=== PATIENT | male | born 1995 ===

== ENCOUNTER 2018-12-20 11:32 | Inpatient (IN) | payer OTHER ==
[~2018-12-20] VITALS: Ht 175.3 cm; Wt 76.2 kg
[2018-12-20 12:44] VITALS: BP 102/63; PULSE 91; TEMP 98.8
--- NOTE | 2018-12-20 13:00 | NUR ---
Arrived to the room at this time. Resting quietly at this time. No pain reported. The patient was oriented to the room. Initial assessment completed per this nurse.
[2018-12-20 14:51] LABS: HEMOGLOBIN 8.5 g/dl (13.5-18.0)
[2018-12-20 15:36] VITALS: BP 110/51; PULSE 94; TEMP 99.4
[2018-12-20] MEDS ORDERED: WELLBUTRIN 75MG75 MG PO (19:12)
[2018-12-20] MEDS ORDERED: ATARAX 10MG10 MG/TAB PO (19:12)
--- NOTE | 2018-12-20 19:14 | NUR ---
The patient voiced he smokes up to a pack of cigerettes per day if being "social" and drinking. Other days the patient will have "one or two".
[2018-12-20 20:13] VITALS: BP 101/56; PULSE 93; TEMP 99.8
--- NOTE | 2018-12-20 20:42 | NUR ---
PT IN BED, AWAKENS EASILY. PT DENIES PAIN OR DISCOMFORT, WITH NO NEEDS AT THIS TIME, CALL LIGHT WITHIN REACH. PT AWARE THAT HE IS NPO.
[2018-12-20 23:03] LABS: HEMATOCRIT 23.6 % (42.0-52.0); HEMOGLOBIN 7.9 g/dl (13.5-18.0)
[2018-12-21] VITALS (9 sets, daily range): BP systolic 99–113; BP diastolic 42–62; PULSE 88–98; TEMP 99.4–100.8
--- NOTE | 2018-12-21 03:12 | NUR ---
UNEVENTFUL NIGHT, PT SLEEPING/RESTING WITH NO S/S OF PAIN OR DISCOMFORT NOTED, GIRLFRIEND AT BEDSIDE IN RECLINER. CALL LIGHT WITHIN REACH.
--- NOTE | 2018-12-21 05:37 | NUR ---
UNEVENTFUL NIGHT, PT SLEEPING/RESTING WITH GIRLFRIEND BY SIDE. PT SOFTLY SNORES, WITH RESP EVEN AND UNLABORED. CALL LIGHT WITHIN REACH.
--- NOTE | 2018-12-21 06:59 | NUR ---
DR. HICKS CALLED AND ADVISED WILL DO AN UPPER ENDOSCOPY AROUND 1430 AND 1500 THIS AFTERNOON. ALSO GAVE ORDERS TO PUT IN ROUTINE ENDOSCOPY ORDERS. ANESTHESIA WAS PAGED AND THEY CALLED BACK RIGHT AWAY AND GO INFO.
[2018-12-21 07:32] LABS: BASO % 0.5 % (0.0-2.0); EOS # 0.5 (0.0-0.7); EOS % 7.3 % (0-4.0); GRAN # 3.8 (1.4-6.5); LYMPH # 1.3 (1.2-3.4); LYMPH % 20.6 % (20.0-51.0); MEAN CELL VOLUME 93 fl (80.0-100.0); MEAN CORPUSCULAR HGB CONC 34 g/dl (33.0-37.0); MEAN PLATELET VOLUME 10.8 fl (7.4-10.4); MONO # 0.8 (0.1-0.6); MONO % 12.3 % (1.7-9.3); PLATELET COUNT 177 K/mm3 (130-400); RED BLOOD COUNT 2.39 M/mm3 (4.20-5.60); REDCELL DISTRIBUTION WIDTH-CV 12.8 % (11.5-14.5)
[2018-12-21 07:36] LABS: HEMATOCRIT 22.2 % (42.0-52.0); HEMOGLOBIN 7.5 g/dl (13.5-18.0); MEAN CORPUSCULAR HEMOGLOBIN 31 pg (27.0-31.0)
[2018-12-21 07:39] LABS: CREATININE, serum 0.93 (0.66-1.25); POTASSIUM 4.1 mmol/L (3.4-5.0)
--- NOTE | 2018-12-21 09:13 | NUR ---
Assessment completed, alert/oriented, vital signs stable/ does have low grade fever this morning and i will notify the hospitalist, he reports a headache that is ongoing but thinks this is because he has not eaten in a couple days now, denies any abdominal discomfort, denies any further bloody emesis or bloody stools, denies any N/V at this time, hemaglobin is 7.5 this moring and I have notified the hospitalist, GI was consulted and has given order for EGD today around 1430, patient is NPO/ IVF infusing and will have him sign informed consent, heart RRR/distal pulses are palpable, lungs CTA/ no resp.difficulty noted, mother and girlfriend are at bedside, he denies othr needs at this time
--- NOTE | 2018-12-21 11:37 | NUR ---
SW attended clinical rounds to discuss discharge planning. 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 Patient receives primary care and obtains medications on [facility] [address]. Patient is independent with his ADLs. SW does not anticipate any discharge needs.
--- NOTE | 2018-12-21 15:40 | NUR ---
Patient is going down for EGD at this time
--- NOTE | 2018-12-21 19:18 | NUR ---
Pt sitting with HOB eating a full liquid tray. Family at bedside. No distress noted. Pt c/o pain/pressure in his R ear. He states that the pain is periodically sharp. He also reports sinus congestion. Lungs clear. Abdomen soft, nontender. BS hyperactive x4. Pt is tolerating PO fluids and full liquid tray. Pt denies nausea or vomiting. Pt also denies BM today. L AC IV site with IVF infusing. SCDs put on patient for VTE prophylaxis. No further needs noted. Will continue to monitor.
--- NOTE | 2018-12-21 19:38 | NUR ---
Ben arrived back to the Medical floor from [facility] at this time, alert/oriented, vital signs stable, and hosptialist said can start on clear liquids and adavance Diet at tolerated, he does continue to have low grade temp/ Hospitalist notified, family present at bedside, tolerating CL so far
--- NOTE | 2018-12-21 20:34 | NUR ---
Tylenol given for pts R ear pain. Pt is tolerating PO hyration. IV converted to INT. IV covered so patient can shower. No further needs noted.
[2018-12-22] VITALS (9 sets, daily range): BP systolic 106–129; BP diastolic 53–61; PULSE 80–100; TEMP 98.3–102.9
--- NOTE | 2018-12-22 05:20 | NUR ---
Pts temperature has continued to trend up this shift. Temp was 102.9 orally when checked. ORGAN ASSEMBLER waited a few minutes and rechecked temp at 102.2. Pt reports the same symptoms as the beginning of the shift. R ear pain and pressure/fullness in bilateral ears. Pt also reports congestion and sinus pressure. Tylenol given. Paz MARIN called. She wants to come assess the patient before giving orders.
--- NOTE | 2018-12-22 06:19 | NUR ---
Paz CARDIOPULMONARY TECHNICIAN at bedside.
--- NOTE | 2018-12-22 06:25 | NUR ---
Paz assessed patient but was unable to visualize the eardrum due to ear wax accumulation. Blood cultures x2, CXR and UA orders. Temp recheck was 101.4 after tylenol. Will continue to monitor.
[2018-12-22 06:43] LABS: BASO % 0.1 % (0.0-2.0); EOS # 0.4 (0.0-0.7); EOS % 6.2 % (0-4.0); GRAN # 4.5 (1.4-6.5); GRAN % 64.2 % (42.2-75.2); LYMPH # 1.2 (1.2-3.4); LYMPH % 16.6 % (20.0-51.0); MEAN CELL VOLUME 92 fl (80.0-100.0); MEAN CORPUSCULAR HGB CONC 34 g/dl (33.0-37.0); MEAN PLATELET VOLUME 10.6 fl (7.4-10.4); MONO # 0.9 (0.1-0.6); MONO % 12.2 % (1.7-9.3); PLATELET COUNT 183 K/mm3 (130-400); RED BLOOD COUNT 2.22 M/mm3 (4.20-5.60); REDCELL DISTRIBUTION WIDTH-CV 12.4 % (11.5-14.5)
[2018-12-22 06:49] LABS: HEMATOCRIT 20.4 % (42.0-52.0); MEAN CORPUSCULAR HEMOGLOBIN 32 pg (27.0-31.0)
[2018-12-22 06:54] LABS: CALCIUM 8.1 mg/dL (8.4-10.2); CREATININE, serum 0.96 (0.66-1.25); POTASSIUM 3.7 mmol/L (3.4-5.0)
--- NOTE | 2018-12-22 08:00 | NUR ---
Initial assessment completed. The patient reported sinus pressure and sore throat. Temp max 102.9 overnight. The patient was given tylenol PRN. Currently, no chills or diaphoresis at this time. The patient's UA was obtained. Plan for chest xray and blood cultures.
--- NOTE | 2018-12-22 09:41 | NUR ---
Initial visit; Patient thanked [employer] for looking in on him and offering God's blessings and thanking him for his Service for [employer] as a Person[employer].
--- NOTE | 2018-12-22 12:00 | NUR ---
Throat swab obtained at this time. No pain or needs reported. The call light is in place.
[2018-12-22 13:00] LABS: PH 7 (5-8); SQUAMOUS EPITHELIAL None Seen /hpf; URINE APPEARANCE Clear; URINE BACTERIA None Seen /hpf; URINE BILIRUBIN Negative (NEGATIVE); URINE BLOOD Negative (NEGATIVE); URINE COLOR Yellow; URINE GLUCOSE Negative (NEGATIVE); URINE KETONE Negative (NEGATIVE); URINE LEUKOCYTE ESTERASE Negative (NEGATIVE); URINE NITRATE Negative (NEGATIVE); URINE PROTEIN(semi-quant) Negative (NEGATIVE); URINE RBC None Seen /hpf; URINE UROBILINOGEN Negative (NEGATIVE)
[2018-12-22 13:20] LABS: COLLECTION METHOD CLEAN CATCH
--- NOTE | 2018-12-22 13:53 | NUR ---
Report given to MAX Robles to resume care.
[2018-12-22 15:34] LABS: HEMATOCRIT 20.9 % (42.0-52.0); HEMOGLOBIN 7.1 g/dl (13.5-18.0)
--- NOTE | 2018-12-22 17:43 | NUR ---
Patient had an uneventful day. VS stable. IV CDI. Patient reports discomfort in throat, has not requested any medication. Nurse encouraged ice chips. Patient had elevated temperature. Dr notified, medication given. Temperature has gone down. Will continue to monitor. Patient resting in bed with family at bedside. No further needs identified at this time. Call light within reach.
[2018-12-23 00:05] VITALS: BP 115/54; PULSE 91; TEMP 98.8
[2018-12-23 04:50] VITALS: BP 102/45; PULSE 89; TEMP 98.8
[2018-12-23 06:30] LABS: BASO % 0.3 % (0.0-2.0); EOS # 0.7 (0.0-0.7); GRAN % 50.4 % (42.2-75.2); LYMPH # 1.5 (1.2-3.4); LYMPH % 25.2 % (20.0-51.0); MEAN CELL VOLUME 93 fl (80.0-100.0); MEAN CORPUSCULAR HGB CONC 34 g/dl (33.0-37.0); MEAN PLATELET VOLUME 11.1 fl (7.4-10.4); MONO # 0.7 (0.1-0.6); MONO % 12.3 % (1.7-9.3); PLATELET COUNT 218 K/mm3 (130-400); REDCELL DISTRIBUTION WIDTH-CV 12.8 % (11.5-14.5)
[2018-12-23 06:35] LABS: CALCIUM 8.3 mg/dL (8.4-10.2); CREATININE, serum 0.87 (0.66-1.25); POTASSIUM 3.9 mmol/L (3.4-5.0)
[2018-12-23 06:48] LABS: HEMATOCRIT 21.4 % (42.0-52.0); HEMOGLOBIN 7.2 g/dl (13.5-18.0); MEAN CORPUSCULAR HEMOGLOBIN 31 pg (27.0-31.0)
[2018-12-23 07:34] VITALS: BP 110/49; PULSE 96; TEMP 99.8
[2018-12-23] MEDS ORDERED: AMOXICILLIN 8751 TAB PO (09:16)
[2018-12-23] MEDS ORDERED: PROTONIX 40MG T40 MG PO (09:17)
[2018-12-23] MEDS ORDERED: FERROUS SU325 MG/TAB PO (09:17)
--- NOTE | 2018-12-23 10:14 | NUR ---
PT DISCHARGE EDUCATION PROVIDED, IV REMOVED. SCRIPTS GIVEN TO PT. NO QUESTIONS OR CONSERNS VOICED. FAMILY AT BEDSIDE. THIS NURSE ASKED IF THEY NEEDED ASSISTANCE OUT OF FACILITY, DENIED NEED.
--- NOTE | 2018-12-23 10:35 | NUR ---
PT EXITED FACILITY WITH FAMILY ESCORT.
== END 2018-12-23 10:35 | disposition home or self-care (01) | DRG 369 ==
LOC: MEDICAL 11:32
PROVIDERS: Internal Medicine; Internal Medicine Gastroenterology; Physician Assistant; ADMIT Hospitalist
PROC: 0DJ08ZZ Inspection of Upper Intestinal Tract, Via Natural or Artificial Opening Endoscopic (ICD-10-PCS; principal; 2018-12-21 16:30)
DX: K22.6 Gastro-esophageal laceration-hemorrhage syndrome (principal); D62 Acute posthemorrhagic anemia; F32.9 Major depressive disorder, single episode, unspecified; J32.9 Chronic sinusitis, unspecified; B34.8 Other viral infections of unspecified site
CPT/HCPCS: 99232-AI; 99239; C9113; G0378; J2250; J3010; J7030